=== PATIENT | male | born 1975 | race Caucasian/White ===

== ENCOUNTER 2022-02-16 22:34 | Emergency (ER) | payer MEDICAID ==
[~2022-02-16] VITALS: Ht 185.4 cm; Wt 86.4 kg
--- NOTE | 2022-02-16 23:34 | NUR ---
PT STATES HE WAS TREATED WITH BACTRIM AND KEFLEX FOR HIS WOUND CELLULITIS 1 WEEK PRIOR BUT STATES HE DOESNT THINK THE INFECTION IS GONE. STATES THAT HIS GLANDS ARE NOW SWOLLEN. STATES THAT HE HAS BEEN FEBRILE AND HAS A SORE THROAT WELL. [id number]. NO ACUTE DISTRESS NOTED. WILL MONITOR THROUGHOUT.
[2022-02-16] MEDS ORDERED: BACI28.42 TOP (23:56)
[2022-02-17 00:12] VITALS: BP 139/78
== END 2022-02-17 00:15 | disposition home or self-care (01) ==
LOC: ER 22:35
DX: L98.9 Disorder of the skin and subcutaneous tissue, unspecified (principal); F15.10 Other stimulant abuse, uncomplicated
CPT/HCPCS: 99282